=== PATIENT | female | born 1995 | race Caucasian/White ===

== ENCOUNTER 2021-02-05 01:57 | Emergency (ER) | payer OTHER, BC ==
[2021-02-05 14:36] LABS: SARS-CoV-2 PCR by NAA Not Detected (NotDetected)
== END 2021-02-05 02:20 | disposition home or self-care (01) ==
LOC: BURERS 01:57
DX: R05 Cough (principal); R50.9 Fever, unspecified; R43.9 Unspecified disturbances of smell and taste; J45.909 Unspecified asthma, uncomplicated; F17.220 Nicotine dependence, chewing tobacco, uncomplicated; Z20.822 Contact with and (suspected) exposure to COVID-19
CPT/HCPCS: 99283; U0003; U0005

== ENCOUNTER 2021-06-02 01:00 | Emergency (ER) | payer BC, OTHER ==
[2021-06-02] MEDS ORDERED: predniSONE 20 MG TAB ONE (01:13)
[2021-06-02] MEDS ORDERED: hydrOXYzine 25 MG TAB ONE (01:13)
== END 2021-06-02 01:23 | disposition home or self-care (01) ==
LOC: BURERS 01:00
DX: L25.5 Unspecified contact dermatitis due to plants, except food (principal); J45.909 Unspecified asthma, uncomplicated; F17.220 Nicotine dependence, chewing tobacco, uncomplicated
CPT/HCPCS: 99282; J7512

== ENCOUNTER 2021-06-03 20:34 | Emergency (ER) | payer BC ==
[2021-06-03] MEDS ORDERED: Famotidine 20 MG TAB ONE (20:53)
== END 2021-06-03 21:00 | disposition home or self-care (01) ==
LOC: BURERS 20:34
DX: B86 Scabies (principal); F17.220 Nicotine dependence, chewing tobacco, uncomplicated
CPT/HCPCS: 99282

== ENCOUNTER 2025-04-14 12:29 | Emergency (ER) | payer OTHER ==
[2025-04-14] MEDS ORDERED: Ibuprofen 200 MG TAB ONE (13:23)
[2025-04-14] MEDS ORDERED: Sulfameth/Trimethoprim DS 800-160mg TAB ONE (13:23)
== END 2025-04-14 14:21 | disposition home or self-care (01) ==
LOC: BURERS 12:29
DX: O91.22 Nonpurulent mastitis associated with the puerperium (principal)
CPT/HCPCS: 99283